=== PATIENT | female | born 1995 | race Caucasian/White ===

== ENCOUNTER 2024-01-29 16:39 | Emergency (ER) | payer MEDICAID ==
[~2024-01-29] VITALS: Ht 162.6 cm; Wt 152.0 kg
[2024-01-29] MEDS ORDERED: AMOX-580 PO (18:17)
[2024-01-29] MEDS ORDERED: SULF1TAB49 PO (18:17)
[2024-01-29] MEDS: ceFAZolin 1gm IM kit IM ONE (18:19)
[2024-01-29 18:31] VITALS: BP 156/95; PULSE 95; RESP 18; TEMP 97.2; O2SAT 96
== END 2024-01-29 18:34 | disposition home or self-care (01) ==
LOC: ER 16:39
DX: N61.0 Mastitis without abscess (principal)
CPT/HCPCS: 96372; 99283; J0690